=== PATIENT | female | born 1995 | race Hispanic/Latino ===

== ENCOUNTER 2021-05-25 09:56 | Inpatient (IN) | payer OTHER ==
[2021-05-25] MEDS ORDERED: Ibuprofen 800 MG TAB PO PRN (10:09)
[2021-05-25] MEDS ORDERED: Acetaminophen 500 MG TAB PO PRN (10:09)
[2021-05-25] MEDS ORDERED: Promethazine HCl 25 MG/ML VIAL IM PRN (10:09)
[2021-05-25] MEDS ORDERED: HYDROcodone/Acetaminophen 5/325 mg Tablet PO PRN ×2 (10:09→15:14)
[2021-05-25] MEDS ORDERED: Misoprostol 200 MCG TAB PR PRN (10:09)
[2021-05-25] MEDS ORDERED: Ondansetron PF 4 MG/2 ML Vial IVP PRN ×2 (10:09→15:14)
[2021-05-25] MEDS ORDERED: Diphenoxylate HCl/Atropine Tablet PO PRN (10:09)
[2021-05-25] MEDS ORDERED: Methylergonovine 0.2 MG/ML VIAL IM PRN (10:09)
[2021-05-25] MEDS ORDERED: Lidocaine 1% (PF) 30 ML VIAL SC PRN (10:09)
[2021-05-25] MEDS ORDERED: hydrALAZINE 20 MG/ML VIAL SLOW IVP PRN ×2 (10:09→15:14)
[2021-05-25] MEDS ORDERED: Carboprost 250 MCG/ML AMP IM PRN (10:09)
[2021-05-25] MEDS ORDERED: Butorphanol Tartrate 1 MG/ML VIAL SLOW IVP PRN (10:09)
[2021-05-25] MEDS ORDERED: NS w/ Oxytocin 30 units 500 ML IV SCH ×3 (10:15→15:14)
[2021-05-25] MEDS ORDERED: Lactated Ringer's 1,000 ML IV SCH (10:15)
[2021-05-25 10:49] LABS: Hemoglobin 10.4 g/dL (12.0-15.5); Mean Corpuscular HGB CONC 31.1 g/dL (32.0-36.0); Mean Corpuscular Hemoglobin 24.4 pg (27.0-33.0); Mean Corpuscular Volume 78.4 fl (81.6-98.3); Mean Platelet Volume 11.9 fl (7.4-10.4); Platelet Count 179 10x3/uL (150-450); RBC Distribution Width 14.6 % (11.5-14.5); Red Blood Cell (RBC) Count 4.26 10x6/uL (3.90-5.03); White Blood Cell (WBC) Count 8.4 10x3/uL (3.5-10.5)
[2021-05-25 11:24] LABS: Hep B Surf Ag Non-Reactive S/CO (NonReactive)
[2021-05-25 11:25] LABS: Syphilis Antibody Nonreactive (Nonreactive); Syphilis Antibody Index 0.03 S/CO (<1.00 Non-Reactive)
[2021-05-25] MEDS ORDERED: Penicillin G Potassium 5 MILL.UNITS in Sodium Chloride 0.9% 100 ML IVPB SCH (12:00)
[2021-05-25 12:50] LABS: SARS-CoV-2 NAA Rapid Test DETECTED (NotDetected)
[2021-05-25 15:14] VITALS: BMI 38.4
[2021-05-25] MEDS ORDERED: Boostrix 0.5 ML (Tdap) VIAL IM ONE (15:14)
[2021-05-25] MEDS ORDERED: Bisacodyl 10 MG SUPP PR PRN (15:14)
[2021-05-25] MEDS ORDERED: Lanolin Ointment 7 GM TUBE TOP PRN (15:14)
[2021-05-25] MEDS ORDERED: diphenhydrAMINE 25 MG CAP PO PRN (15:14)
[2021-05-25] MEDS ORDERED: Milk Of Magnesia 30 ML UDCUP PO PRN (15:14)
[2021-05-25] MEDS ORDERED: Penicillin G 2.5 MILL.units 2.5 MILL.UNITS in Premix Bag 1 BAG IVPB SCH (16:00)
[2021-05-25] MEDS: Ibuprofen 800 MG TAB PO SCH (16:15)
[2021-05-25] MEDS: Ferrous Sulfate 325 MG TAB PO SCH (16:58)
[2021-05-25] MEDS: Docusate 100 MG CAP PO SCH (20:13)
[2021-05-26] MEDS: Ibuprofen 800 MG TAB PO SCH ×3 (00:40→16:14)
[2021-05-26] MEDS: Prenatal Vitamin 1 TAB PO SCH (09:41)
[2021-05-26] MEDS: Docusate 100 MG CAP PO SCH (09:42)
[2021-05-26] MEDS: Ferrous Sulfate 325 MG TAB PO SCH ×2 (09:42→17:20)
[2021-05-27] MEDS: Ibuprofen 800 MG TAB PO SCH ×3 (00:59→16:08)
[2021-05-27] MEDS: Docusate 100 MG CAP PO SCH ×2 (00:59→09:00)
[2021-05-27] MEDS: Ferrous Sulfate 325 MG TAB PO SCH (07:24)
[2021-05-27] MEDS: Prenatal Vitamin 1 TAB PO SCH (09:00)
[2021-05-27 16:16] VITALS: BP 123/78; TEMP 97.5
== END 2021-05-27 18:05 | disposition home or self-care (01) | DRG 805 ==
LOC: CSHLD 09:56 → CSHANTE 15:23
PROVIDERS: ADMIT Family Medicine; ATTEND Family Medicine
PROC: 10907ZC Drainage of Amniotic Fluid, Therapeutic from Products of Conception, Via Natural or Artificial Opening (ICD-10-PCS; principal; 2021-05-25)
PROC: 10E0XZZ Delivery of Products of Conception, External Approach (ICD-10-PCS; 2021-05-25)
PROC: 3E033VJ Introduction of Other Hormone into Peripheral Vein, Percutaneous Approach (ICD-10-PCS; 2021-05-25)
DX: O99.824 Streptococcus B carrier state complicating childbirth (principal); U07.1 COVID-19; Z37.0 Single live birth; O98.52 Other viral diseases complicating childbirth; O70.0 First degree perineal laceration during delivery; Z3A.39 39 weeks gestation of pregnancy
CPT/HCPCS: 36415; 85027; 86780; 86850; 86900; 86901; 87340; J0595; U0002